=== PATIENT | male | born 1940 | race Caucasian/White ===

== ENCOUNTER → 2019-08-07 | Outpatient (CLI) | payer OTHER ==
[~2019-08-07] MED LIST: B12; D3; DOXYCYCLINE 10100 MG PO; MULTIVITAMINS1 EAC7; VERAPAMIL E.R240 M1 PO; ZIAC 5-6.25 MG1 EACH PO; ZOFRAN ODT4 MG PO
== END ==
LOC: M.LAB 09:23
DX: G20 Parkinson's disease (principal); R26.9 Unspecified abnormalities of gait and mobility

== ENCOUNTER → 2019-08-23 | Outpatient (CLI) | payer OTHER ==
[2019-08-24 02:07] LABS: IgA 326 mg/dL (61-437); IgG 1161 mg/dL (603-1613); IgM 31 mg/dL (15-143)
== END ==
LOC: M.LAB 10:29 → M.MRI 11:30
PROVIDERS: Psychiatry & Neurology Neuromuscular Medicine
DX: G20 Parkinson's disease (principal); G62.9 Polyneuropathy, unspecified; R26.9 Unspecified abnormalities of gait and mobility; D18.09 Hemangioma of other sites